=== PATIENT | female | born 1925 | race Caucasian/White ===

== ENCOUNTER 2017-02-25 11:00 | Observation (INO) | payer OTHER ==
[2017-02-25 11:04] VITALS: BMI 21.0
[2017-02-25] MEDS ORDERED: KETOROLAC TROMETHAMINE 60 MG/2 ML VIAL IM ONE (12:27)
[2017-02-25] MEDS ORDERED: KETOROLAC TROMETHAMINE 30 MG/1 ML VIAL ONE (12:41)
--- NOTE | 2017-02-25 12:48 | PDOC ---
History of Present Illness - General Chief Complaint: Pain Stated Complaint: RT LEG PAIN Time Seen by Provider: 02/25/17 11:35 History Source: Patient, Other (daughter) Exam Limitations: No Limitations - History of Present Illness Initial Comments: 02/25/17 13:40 89-year-old female brought in by children for evaluation of continual right hip and right back pain despite taking tramadol and receiving an injection of Toradol by pain management last week. Patient was recommended to have a CT of her spine but does not have an appointment until Sunday and due to the increasing amount of pain family decided bring patient to the ER. Patient denies any paresthesia to the lower extremity, previous injury to the affected area, fall, change in temperature of the extremity or skin discoloration. Occurred: reports: other Severity: reports: moderate Pain Location: reports: lower extremity Method of Injury: Yes: unknown Modifying Factors: improves with: None Associated Symptoms (Fall): trouble walking Past History - Travel Traveled outside of the country in the last 30 days: No Close contact w/someone who was outside of country & ill: No - Past Medical History Allergies/Adverse Reactions: Allergies Allergy/AdvReac Type Severity Reaction Status Date / Time latex [Latex] Allergy Mild Itching Verified 02/25/17 11:01 Home Medications: Ambulatory Orders Aspirin [ASA -] 81 mg PO DAILY 02/08/14 Donepezil HCl [Aricept -] 10 mg PO DAILY 02/08/14 Isosorbide Mononitrate [Imdur] 90 mg PO DAILY 02/08/14 Pantoprazole Sodium [Protonix -] 40 mg PO DAILY 02/08/14 Simvastatin [Zocor -] 10 mg PO DAILY 02/08/14 Alendronate Sodium [Fosamax] 10 mg PO WEEKLY 02/19/16 Amlodipine Besylate 10 mg PO DAILY 02/19/16 Gabapentin 300 mg PO BID 02/19/16 Hydralazine HCl [Apresoline -] 25 mg PO BID 02/19/16 Losartan Potassium 100 mg PO DAILY 02/19/16 Meclizine HCl [Antivert -] 12.5 mg PO DAILY 02/19/16 Memantine HCl [Namenda -] 10 mg PO BID 02/19/16 Metoprolol Succinate [Toprol Xl -] 12.5 mg PO DAILY 02/19/16 Anemia: Yes Cardiac Disorders: Yes (STENT 2008) CHF: No Diabetes: No GI Disorders: Yes (GERD) HTN: Yes Hypercholesterolemia: Yes Suicide Attempt (Hx): No - Surgical History Cardiac Surgery: Yes (Stents placed) Neurologic Surgery: Yes (BENIGN TUMOR SCALP MARCH 2011) - Immunization History Td Vaccination: Yes (INCLUDING FLU SHOT) Immunization Up to Date: Yes - Suicide/Smoking/Psychosocial Hx Anxiety: No Suicidal Ideation: No Smoking Status: No Smoking History: Never smoked Have you smoked in the past 12 months: No Number of Cigarettes Smoked Daily: 0 Information on smoking cessation initiated: No Hx Alcohol Use: No Drug/Substance Use Hx: No Substance Use Type: None Hx Substance Use Treatment: No Patient Lives Alone: No Lives with/in: children Trauma Specific PMHX - Complaint Specific PMHX Arthritis: No Back Injury: No Review of Systems - Review of Systems Able to Perform ROS?: Yes Constitutional: No: Symptoms Reported Respiratory: No: Symptoms reported Cardiac (ROS): No: Symptoms Reported : No: Symptoms Reported Musculoskeletal: Yes: Back Pain, Joint Pain Integumentary: No: Symptoms Reported Neurological: No: Symptoms reported Endocrine: No: Symptoms Reported Hematologic/Lymphatic: No: Symptoms Reported *Physical Exam - Vital Signs Last Vital Signs Temp Pulse Resp BP Pulse Ox 98.2 F 75 18 115/76 100 02/25/17 11:03 02/25/17 11:03 02/25/17 11:03 02/25/17 11:03 02/25/17 11:03 - Physical Exam General Appearance: Yes: Nourished, Appropriately Dressed. No: Apparent Distress Respiratory/Chest: positive: Lungs Clear, Normal Breath Sounds. negative: Respiratory Distress, Accessory Muscle Use Cardiovascular: positive: Regular Rhythm, Regular Rate. negative: Murmur Gastrointestinal/Abdominal: positive: Soft. negative: Tenderness Musculoskeletal: positive: Vertebral Tenderness (l5-S1. tenderness over the right sciatic nerve). negative: CVA Tenderness, Decreased Range of Motion Extremity: positive: Normal Capillary Refill, Normal Inspection, Normal Range of Motion. negative: Tender, Swelling, Calf Tenderness, Erythema Integumentary: positive: Normal Color, Warm, Moist. negative: Rash Neurologic: positive: Motor Strength 5/5 (right straight leg raise. right knee to chest) Heart Score/ECG Review - Age Age: >/= 65 - ECG Impressions Bradycardia: Yes (rate 46 with first-degree AV block. No ischemic changes noted) ED Treatment Course - LABORATORY CBC & Chemistry Diagram: 02/27/17 06:00 02/27/17 06:00 - RADIOLOGY Radiology Studies Ordered: Category Date Time Status HIP & PELVIS-RIGHT [RAD] Stat Radiology 02/25/17 12:27 Ordered SPINE-LUMBAR SACRAL [RAD] Stat Radiology 02/25/17 12:27 Ordered - Medications Given in the ED: ED Medications Discontinued Medications Generic Name Dose Route Start Last Admin Trade Name Kamaljit PRN Reason Stop Dose Admin Ketorolac Tromethamine 30 mg 02/25/17 12:27 02/25/17 12:35 Toradol Injection - IM 02/25/17 12:28 30 mg ONCE ONE Administration Medical Decision Making - Medical Decision Making 02/25/17 13:03 Patient here with worsening right lower back right hip pain over the past 2 weeks despite taking Ultram and receiving the Toradol injection which she states initially did alleviate pain but only to return the next day. Patient is pending CT imaging of the spine and hip but unable to weight due to pain. Patient exam had point tenderness over the right sciatic nerve and L5-S1. Patient with 5 out of 5 strength but concerning for spinal stenosis with sciatic nerve involvement. Will rule out stress fracture. 02/25/17 15:03 Hip and pelvic x-ray negative for acute findings. Lumbar spine shows degenerative changes with slight forward subluxation of L4 on L5 and L5 and S1. Patient still complaining of pain despite receiving Toradol. Patient will be given a dose of Percocet. Due to patient's worsening pain and inability to ambulate here in the ER, I will contact patient's PCP Dr. Burnett and the hospitalist team to discuss admission. 02/25/17 15:35 Patient still complaining of discomfort and unable to sit upright without discomfort. Patient will be admitted to Dr. Neal, hospitalist. Patient ordered for admission labs and urine. *DC/Admit/Observation/Transfer Diagnosis at time of Disposition: Intractable low back pain - Discharge Dispostion Admit: Yes
--- NOTE | 2017-02-25 15:26 | HP ---
CHIEF COMPLAINT: Back pain PCP: Lex HISTORY OF PRESENT ILLNESS: The patient is an 89 year old female with a significant past medical history of hypertension, hyperlipidemia, CAD, s/p pacemaker, reported lumbar spinal stenosis, chronic back pain, chronic constipation, mild early dementia who presents with several weeks of gradually increasing back pain. The pain was initially localized to the midline of the lower back. For the past week it had spread to the right lower back and right gluteal region. It radiates down the posterior right leg. It is worsenend by movement and palpation of the gluteal area. She denies weakness in either leg. She denies any change in her chronic mild right leg paresthsias. She denies and worsening of her chronic constipation. She denies any change in her chronic urge incontinence. No urinary retention. No fever. No rash. No hematuria. No dysuria. No trauma. The pain she is having now is apparently different than her chronic low back pain in that it has lateralized. She saw Dr. Latham (pain management) last week and received a "shot in the right buttock" which relieved the pain for 24 hours. Since that time it has worsened and she is now unable to transfer from bed to chair or to ambulate independently. Family reports MRI was scheduled for later this week. No mid or upper back pain. No neck pain. ER course was notable for: (1) CXR (2) L-spine X-ray (3) Hip and pelvis X-ray (4) Labs and EKG ordered by me (5) Toradol and Percocet given PAST MEDICAL HISTORY: See HPI PAST SURGICAL HISTORY: S/P SB Social History: Smoking: None Alcohol: None Drugs: None Family History: Allergies latex [Latex] Allergy (Mild, Verified 02/25/17 11:01) Itching With Rash HOME MEDICATIONS: Home Medications Medication Instructions Recorded Aspirin [ASA -] 81 mg PO DAILY 02/08/14 Donepezil HCl [Aricept -] 10 mg PO DAILY 02/08/14 Isosorbide Mononitrate [Imdur] 90 mg PO DAILY 02/08/14 Pantoprazole Sodium [Protonix -] 40 mg PO DAILY 02/08/14 Simvastatin [Zocor -] 10 mg PO DAILY 02/08/14 Alendronate Sodium [Fosamax] 10 mg PO WEEKLY 02/19/16 Amlodipine Besylate 10 mg PO DAILY 02/19/16 Cyclobenzaprine HCl [Flexeril -] 10 mg PO TID PRN #21 tablet 02/19/16 Gabapentin 300 mg PO BID 02/19/16 Hydralazine HCl [Apresoline -] 25 mg PO BID 02/19/16 Losartan Potassium 100 mg PO DAILY 02/19/16 Meclizine HCl [Antivert -] 12.5 mg PO DAILY 02/19/16 Memantine HCl [Namenda -] 10 mg PO BID 02/19/16 Metoprolol Succinate [Toprol Xl -] 12.5 mg PO DAILY 02/19/16 REVIEW OF SYSTEMS CONSTITUTIONAL: Absent: fever, chills, diaphoresis, generalized weakness, malaise, loss of appetite, weight change HEENT: Absent: rhinorrhea, nasal congestion, throat pain, throat swelling, difficulty swallowing, mouth swelling, ear pain, eye pain, visual changes CARDIOVASCULAR: Absent: chest pain, syncope, palpitations, irregular heart rate, lightheadedness , peripheral edema RESPIRATORY: Absent: cough, shortness of breath, dyspnea with exertion, orthopnea, wheezing, stridor, hemoptysis GASTROINTESTINAL: Present: chronic constipation Absent: abdominal pain, abdominal distension, nausea, vomiting, diarrhea, melena , hematochezia Chronic constipation (last BM 3 days ago), positive flatus GENITOURINARY: Present: chronic urge incontinence Absent: dysuria, frequency, hesitancy, hematuria, flank pain, genital pain MUSCULOSKELETAL: Present: See HPU Absent: arthralgia, joint swelling, neck pain SKIN: Absent: rash, itching, pallor HEMATOLOGIC/IMMUNOLOGIC: Absent: easy bleeding, easy bruising, lymphadenopathy, frequent infections ENDOCRINE: Absent: unexplained weight gain, unexplained weight loss, heat intolerance, cold intolerance NEUROLOGIC: Absent: headache, focal weakness or paresthesias, dizziness, unsteady gait, seizure, mental status changes, bladder or bowel incontinence PSYCHIATRIC: Absent: anxiety, depression, suicidal or homicidal ideation, hallucinations. PHYSICAL EXAMINATION Vital Signs - 24 hr 02/25/17 11:03 Temperature 98.2 F Pulse Rate 75 Respiratory 18 Rate Blood Pressure 115/76 O2 Sat by Pulse 100 Oximetry (%) GENERAL: Awake, alert, and fully oriented, in no acute distress. HEAD: Normal with no signs of trauma. EYES: Pupils equal, round and reactive to light, extraocular movements intact, sclera anicteric, conjunctiva clear. No lid lag. EARS, NOSE, THROAT: Ears normal, nares patent, oropharynx clear without exudates. Dry mucous membranes NECK: Normal range of motion, supple without lymphadenopathy, JVD, or masses. LUNGS: Breath sounds equal, clear to auscultation bilaterally. No wheezes, and no crackles. No accessory muscle use. HEART: Regular rate and rhythm, normal S1 and S2 without murmur, rub or gallop. ABDOMEN: Soft, nontender, not distended, normoactive bowel sounds, no guarding, no rebound, no masses. No hepatomegaly or splenomegaly. MUSCULOSKELETAL: Normal range of motion at all joints. No bony deformities or tenderness. No CVA tenderness. No midline vertebral tenderness in the cervical, thoracic or lumbar spine. Point tenderness over the right gluteal area that reproduces her symptoms. UPPER EXTREMITIES: 2+ pulses, warm, well-perfused. No cyanosis. No clubbing. No peripheral edema. LOWER EXTREMITIES: 2+ pulses, warm, well-perfused. No calf tenderness. No peripheral edema. NEUROLOGICAL: Cranial nerves II-XII intact. Normal speech. Strength 5/5 in BLUE. Strength 5/5 in BLLE. No defecits to light touch or temperature in the BLLE. Normoreflexic in the BLLE. No saddle anesthesia. Positive straight leg raise on the right at 30% PSYCHIATRIC: Cooperative. Good eye contact. Appropriate mood and affect. SKIN: Warm, dry, normal turgor, no rashes or lesions noted, normal capillary refill. ASSESSMENT/PLAN: The patient is an 89 year old female with a significant past medical history and ED course as above who is being placed on observation for further evaluation and treatment of intractable right low back pain. Labs pending #Pain No evidence of spinal cord compression No evidence of cauda equina syndrome Doubt lumbar spinal stenosis, given how lateralizing this is, though it is possible Suspect acute lumbosacral radiculopathy (sciatica) Begin Motrin 600mg Q8hr ATC Begin Lidoderm patch Continue Neurontin but increase to 300mg TID Percocet 1 tab Q6 hrs prn severe pain PT consult Will avoid cyclobenzaprine given lack of demonstrated efficacy over NSAIDS and side effect profile Can consider systemic corticosteroids if pain does not improve with NSAIDS and PT, though she will be at increased risk of side effects given advanced age and dementia (psychosis), history GERD and on ASA with NSAIDS (gastritis and PUD) Ortho consult Pain management consult (Dr. Luciano) for consideration of glucocorticoid injection MRI lumbar spine #[facility] Chronic HTN, HLP, CAD No acute issues Continue home medications #FEN She seems hypovolemic Will give 500ml NS followed by maintenance fluid Low sodium diet Lytes pending #Chronic constipation Acute exacerbation Colace TID Senna BID Miralax daily Lactulose prn #Prophylaxis Lovenox Protonix while on NSAIDS PT consult as above #Disposition Pending improvement and MRI Dr. Kruger to assume care in the morning Our group is covering him today and tonight Visit type - Emergency Visit Emergency Visit: Yes ED Registration Date: 02/25/17 Care time: The patient presented to the Emergency Department on the above date and was hospitalized for further evaluation of their emergent condition. - New Patient This patient is new to me today: Yes Date on this admission: 02/25/17 - Critical Care Critical Care patient: No
[2017-02-25] MEDS ORDERED: ALENDRONATE SODIUM 10 MG PO SCH (16:00)
[2017-02-25] MEDS ORDERED: LIDOCAINE 5% TOPICAL PATCH TP ONE (16:01)
[2017-02-25] MEDS ORDERED: LACTULOSE 20 GM/30 ML UDC (FOR ORAL USE ONLY) PO PRN (16:03)
[2017-02-25] MEDS ORDERED: SODIUM CHLORIDE 500 ML IV STA (16:05)
[2017-02-25] MEDS: ENOXAPARIN NA (PORCINE) 30 MG/0.3 ML DISP.SYRIN SQ SCH (16:25)
[2017-02-25] MEDS ORDERED: ACETAMINOPHEN 325 MG TABLET (FP) PO PRN (16:39)
[2017-02-25] MEDS ORDERED: oxyCODONE HCL 5 MG TABLET PO PRN (16:39)
[2017-02-25] MEDS ORDERED: LACTULOSE 20 GM/30 ML UDC (FOR ORAL USE ONLY) ONE (16:42)
[2017-02-25] MEDS ORDERED: LIDOCAINE 5% TOPICAL PATCH ONE (16:43)
[2017-02-25] MEDS ORDERED: ENOXAPARIN NA (PORCINE) 40 MG/0.4 ML DISP.SYRIN SQ ONE (16:43)
[2017-02-25 17:28] LABS: BASOPHIL 1.5 % (0-2.0); EOSINOPHIL 7.3 % (0-4.5); MCH 29.7 pg (25.7-33.7); MCHC 34.2 g/dl (32.0-36.0); MEAN PLT VOLUME 8.1 fl (7.5-11.1); PLATELET COUNT 166 K/MM3 (134-434); WHITE BLOOD COUNT 4.2 K/mm3 (4.0-10.0)
[2017-02-25 17:56] LABS: ALBUMIN 3.7 g/dl (3.4-5.0); ALK PHOS 42 U/L (45-117); ANION GAP 8 (8-16); BILIRUBIN,TOTAL 0.6 mg/dL (0.2-1.0); CALCIUM 8.7 mg/dL (8.5-10.1); CO2 30 mmol/L (21-32); GLUCOSE,RANDOM 133 mg/dL (74-106); SGOT/AST 15 U/L (15-37); SGPT/ALT 19 U/L (12-78); TOT PROT 6.7 g/dl (6.4-8.2)
[2017-02-25 18:00] LABS: MAGNESIUM 2.4 mg/dL (1.8-2.4); PHOSPHOROUS 3.5 mg/dL (2.5-4.9)
[2017-02-25] MEDS: IBUPROFEN 600 MG TABLET (FP) PO SCH ×2 (18:10→23:53)
[2017-02-25] MEDS: POLYETHYLENE GLYCOL 3350 119 GM BTL PO SCH (20:58)
[2017-02-25] MEDS: DEXTROSE 5%-0.45% SALINE 1,000 ML IV SCH (20:59)
[2017-02-25] MEDS: GABAPENTIN 300 MG CAPSULE (FP) PO SCH (20:59)
[2017-02-25] MEDS: DOCUSATE SODIUM 100 MG CAPSULE (FP) PO SCH ×2 (20:59→23:11)
[2017-02-25] MEDS: SENNOSIDES 8.6MG TABLET (FP) PO SCH (21:01)
[2017-02-25] MEDS: hydrALAZINE HCL 25 MG TABLET (FP) PO SCH (21:01)
[2017-02-25] MEDS: MEMANTINE HCL 10 MG TABLET (FP) PO SCH (21:01)
[2017-02-25] MEDS ORDERED: GABAPENTIN 300 MG CAPSULE (FP) PO SCH (22:00)
[2017-02-25] MEDS: LIDOCAINE PATCH REMOVAL MC SCH (23:12)
[2017-02-25] MEDS ORDERED: FLU VACCINE QUAD 60 MCG/0.5 ML (MDV 17-18) IM ONE (23:21)
[2017-02-26] MEDS: DOCUSATE SODIUM 100 MG CAPSULE (FP) PO SCH ×3 (05:50→21:03)
[2017-02-26] MEDS: GABAPENTIN 300 MG CAPSULE (FP) PO SCH ×3 (05:50→21:03)
[2017-02-26] MEDS: DEXTROSE 5%-0.45% SALINE 1,000 ML IV SCH ×2 (06:46→21:04)
[2017-02-26 08:51] LABS: MCH 29.6 pg (25.7-33.7); MEAN PLT VOLUME 8.6 fl (7.5-11.1); PLATELET COUNT 144 K/MM3 (134-434); RDW 14.1 % (11.6-15.6); WHITE BLOOD COUNT 3.2 K/mm3 (4.0-10.0)
--- NOTE | 2017-02-26 08:57 | CON.ORTH ---
Consult Reason for Consultation:: LBP, right hip pain - Alcohol/Substance Use Hx Alcohol Use: No - Smoking History Smoking history: Never smoked Have you smoked in the past 12 months: No Aproximately how many cigarettes per day: 0 Home Medications - Allergies Allergies/Adverse Reactions: Allergies Allergy/AdvReac Type Severity Reaction Status Date / Time latex [Latex] Allergy Mild Itching Verified 02/25/17 11:01 - Home Medications Home Medications: Ambulatory Orders Aspirin [ASA -] 81 mg PO DAILY 02/08/14 Donepezil HCl [Aricept -] 10 mg PO DAILY 02/08/14 Isosorbide Mononitrate [Imdur] 90 mg PO DAILY 02/08/14 Pantoprazole Sodium [Protonix -] 40 mg PO DAILY 02/08/14 Simvastatin [Zocor -] 10 mg PO DAILY 02/08/14 Alendronate Sodium [Fosamax] 10 mg PO WEEKLY 02/19/16 Amlodipine Besylate 10 mg PO DAILY 02/19/16 Gabapentin 300 mg PO BID 02/19/16 Hydralazine HCl [Apresoline -] 25 mg PO BID 02/19/16 Losartan Potassium 100 mg PO DAILY 02/19/16 Meclizine HCl [Antivert -] 12.5 mg PO DAILY 02/19/16 Memantine HCl [Namenda -] 10 mg PO BID 02/19/16 Metoprolol Succinate [Toprol Xl -] 12.5 mg PO DAILY 02/19/16 Physical Exam for Ortho Vital Signs: Vital Signs Temperature 97.2 F L 02/26/17 05:58 Pulse Rate 63 02/26/17 05:58 Respiratory Rate 18 02/26/17 05:58 Blood Pressure 145/82 02/26/17 05:58 O2 Sat by Pulse Oximetry (%) 99 02/25/17 15:05 - Lower Extremity Pelvis: Yes: Exam WNL, Right Hip: Yes: Exam WNL, Right (LS - + ttp right sided, pain radiating down R LE, - SLR, strength 4/5 compared b/l, good sensation, 2+ pulses) Imaging - Results X-ray: Report Reviewed, Image Reviewed Assessment/Plan 89 year old female with a significant past medical history of hypertension, hyperlipidemia, CAD, s/p pacemaker, reported lumbar spinal stenosis, chronic back pain, chronic constipation, mild early dementia who presents with several weeks of gradually increasing back pain. The pain was initially localized to the midline of the lower back. For the past week it had spread to the right lower back and right gluteal region. It radiates down the posterior right leg. It is worsenend by movement and palpation of the gluteal area. She denies weakness in either leg. She denies any change in her chronic mild right leg paresthsias. Debis bowel/bladder dysfunction. Has seen Dr. Luciano for pain management a/p- LS multi-level degenetive disc disease, stenosis- right hip no acute pathology PT eval, wbat Dr Luciano f/u OOB pain control dvt ppx d/w Dr. Hussein
[2017-02-26 08:59] LABS: ANION GAP 8 (8-16); CALCIUM 8.7 mg/dL (8.5-10.1); CO2 30 mmol/L (21-32); CREATININE 0.8 mg/dL (0.55-1.02); GLUCOSE,RANDOM 100 mg/dL (74-106)
[2017-02-26] MEDS ORDERED: ISOSORBIDE MONONITRATE 30 MG TAB.SR.24H (FP) PO ONE (09:39)
[2017-02-26] MEDS ORDERED: ISOSORBIDE MONONITRATE 60 MG TAB.SR.24H (FP) PO ONE (09:39)
[2017-02-26] MEDS: DONEPEZIL HCL 10 MG TABLET (FP) PO SCH (09:44)
[2017-02-26] MEDS: ISOSORBIDE MONONITRATE 60 MG, ISOSORBIDE MONONITRATE 30 MG PO SCH (09:44)
[2017-02-26] MEDS: METOPROLOL SUCCINATE 25 MG TAB.SR.24H (FP) PO SCH (09:44)
[2017-02-26] MEDS: hydrALAZINE HCL 25 MG TABLET (FP) PO SCH ×2 (09:45→21:04)
[2017-02-26] MEDS: amLODIPine BESYLATE 10 MG TABLET (FP) PO SCH (09:45)
[2017-02-26] MEDS: SENNOSIDES 8.6MG TABLET (FP) PO SCH ×2 (09:45→21:03)
[2017-02-26] MEDS: PANTOPRAZOLE 40 MG TABLET (FP) PO SCH (09:46)
[2017-02-26] MEDS: ASPIRIN 81 MG CHEWABLE TABLETS PO SCH (09:46)
[2017-02-26] MEDS: LOSARTAN POTASSIUM 50 MG TABLET (FP) PO SCH (09:47)
[2017-02-26] MEDS: IBUPROFEN 600 MG TABLET (FP) PO SCH ×3 (09:47→23:19)
[2017-02-26] MEDS: MEMANTINE HCL 10 MG TABLET (FP) PO SCH ×2 (09:48→21:04)
[2017-02-26] MEDS: POLYETHYLENE GLYCOL 3350 119 GM BTL PO SCH (09:50)
[2017-02-26] MEDS: ENOXAPARIN NA (PORCINE) 30 MG/0.3 ML DISP.SYRIN SQ SCH (09:53)
[2017-02-26] MEDS ORDERED: ISOSORBIDE MONONITRATE 60 MG TAB.SR.24H (FP) PO SCH ×2 (10:00)
[2017-02-26] MEDS ORDERED: ISOSORBIDE MONONITRATE 30 MG TAB.SR.24H (FP) PO SCH (10:00)
--- NOTE | 2017-02-26 13:54 | EKG ---
Test Reason : Blood Pressure : / mmHG Vent. Rate : 059 BPM Atrial Rate : 059 BPM P-R Int : 326 ms QRS Dur : 086 ms QT Int : 444 ms P-R-T Axes : 060 -39 020 degrees QTc Int : 439 ms SINUS BRADYCARDIA WITH MARKED SINUS ARRHYTHMIA WITH 1ST DEGREE A-V BLOCK POSSIBLE BLOCKED APC VS. MOBITZ 1 SECONDARY AV BLOCK LEFT AXIS DEVIATION ABNORMAL ECG WHEN COMPARED WITH ECG OF 25-FEB-2017 17:51, NO SIGNIFICANT CHANGE WAS FOUND Confirmed by VALERIANO WANG, IVORY ([id number]) on 02/26/2017 1:53:37 PM Referred By: BRAULIO CARRILLO Confirmed By:IVORY BAL MD
--- NOTE | 2017-02-26 13:57 | EKG ---
Test Reason : Blood Pressure : / mmHG Vent. Rate : 046 BPM Atrial Rate : 059 BPM P-R Int : 378 ms QRS Dur : 084 ms QT Int : 466 ms P-R-T Axes : 106 -43 060 degrees QTc Int : 407 ms SINUS BRADYCARDIA WITH 2ND DEGREE A-V BLOCK (MOBITZ I) 1ST DEGREE AV BLOCK LEFT AXIS DEVIATION ABNORMAL ECG WHEN COMPARED WITH ECG OF 19-FEB-2016 11:55, NO SIGNIFICANT CHANGE WAS FOUND Confirmed by IVORY BAL MD ([id number]) on 02/26/2017 1:56:30 PM Referred By: Confirmed By:IVORY BAL MD
--- NOTE | 2017-02-26 17:42 | PN ---
Physical Exam: SUBJECTIVE: Patient seen and examined at the bedside. She states her pain is improving. She denies any other discomfort. OBJECTIVE: Vital Signs Period Temp Pulse Resp BP Sys/Barton Pulse Ox Last 24 Hr 97.2 F-98.9 F 57-69 18-18 117-154/58-83 GENERAL: The patient is awake, alert, and fully oriented, in no acute distress. HEAD: Normal with no signs of trauma. EYES: PERRL, extraocular movements intact, sclera anicteric, conjunctiva clear. No ptosis. ENT: Ears normal, nares patent, oropharynx clear without exudates, moist mucous membranes. NECK: Trachea midline, full range of motion, supple. LUNGS: Breath sounds equal, clear to auscultation bilaterally, no wheezes, no crackles, no accessory muscle use. HEART: Regular rate and rhythm ABDOMEN: Soft, nontender, nondistended, normoactive bowel sounds, no guarding, no rebound, no hepatosplenomegaly, no masses. EXTREMITIES: 2+ pulses, warm, well-perfused, no edema. NEUROLOGICAL: Normal speech, gait not observed. PSYCH: Normal mood, normal affect. SKIN: Warm, dry, normal turgor, no rashes or lesions noted Laboratory Results - last 24 hr 02/25/17 02/25/17 02/26/17 17:00 17:00 08:00 WBC 3.2 L RBC 3.74 Hgb 11.1 Hct 32.5 MCV 87.0 MCH 29.6 MCHC 34.0 RDW 14.1 Plt Count 144 MPV 8.6 Sodium 143 Potassium 3.9 Chloride 105 Carbon Dioxide 30 D Anion Gap 8 BUN 19 H Creatinine 1.0 Creat Clearance w eGFR 52.20 Random Glucose 133 H Calcium 8.7 Phosphorus 3.5 Magnesium 2.4 Total Bilirubin 0.6 AST 15 ALT 19 D Alkaline Phosphatase 42 L Total Protein 6.7 Albumin 3.7 02/26/17 08:00 WBC RBC Hgb Hct MCV MCH MCHC RDW Plt Count MPV Sodium 143 Potassium 3.7 Chloride 105 Carbon Dioxide 30 Anion Gap 8 BUN 15 D Creatinine 0.8 Creat Clearance w eGFR Random Glucose 100 D Calcium 8.7 Phosphorus Magnesium Total Bilirubin AST ALT Alkaline Phosphatase Total Protein Albumin Active Medications Generic Name Dose Route Start Last Admin Trade Name Freq PRN Reason Stop Dose Admin Acetaminophen 325 mg 02/25/17 16:39 Tylenol - PO Q6H PRN PAIN Amlodipine Besylate 10 mg 02/26/17 10:00 02/26/17 09:45 Norvasc - PO 10 mg DAILY LUZ Administration Aspirin 81 mg 02/26/17 10:00 02/26/17 09:46 Asa - PO 81 mg DAILY LUZ Administration Atorvastatin Calcium 10 mg 02/26/17 22:00 Lipitor - PO HS LUZ Docusate Sodium 100 mg 02/25/17 22:00 02/26/17 13:52 Colace - PO 100 mg TID LUZ Administration Donepezil HCl 10 mg 02/26/17 10:00 02/26/17 09:44 Aricept - PO 10 mg DAILY LUZ Administration Enoxaparin Sodium 30 mg 02/25/17 16:15 02/26/17 09:53 Lovenox - SQ 30 mg DAILY LUZ Administration Gabapentin 300 mg 02/25/17 22:00 02/26/17 13:51 Neurontin - PO 300 mg TID LUZ Administration Hydralazine HCl 25 mg 02/25/17 22:00 02/26/17 09:45 Apresoline - PO 25 mg BID LUZ Administration Dextrose/Sodium Chloride 1,000 mls @ 100 mls/hr 02/25/17 16:15 02/26/17 06:46 D5-1/2ns - IV 100 mls/hr ASDIR LUZ Administration Ibuprofen 600 mg 02/25/17 16:15 02/26/17 17:32 Motrin - PO 600 mg Q8H LUZ Administration Isosorbide Mononitrate 60 mg/ 90 mg 02/26/17 10:00 02/26/17 09:44 Isosorbide Mononitrate 30 mg PO 90 mg DAILY LUZ Administration Lactulose 20 gm 02/25/17 16:03 Cephulac (Oral Use) PO DAILY PRN CONSTIPATION Losartan Potassium 100 mg 02/26/17 10:00 02/26/17 09:47 Cozaar - PO 100 mg DAILY LUZ Administration Memantine 10 mg 02/25/17 22:00 02/26/17 09:48 Namenda - PO 10 mg BID LUZ Administration Metoprolol Succinate 12.5 mg 02/26/17 10:00 02/26/17 09:44 Toprol Xl - PO 12.5 mg DAILY LUZ Administration Miscellaneous 1 each 02/25/17 22:00 02/25/17 23:12 Lidoderm Patch Removal MC 1 each DAILY@2200 LUZ Administration Oxycodone HCl 5 mg 02/25/17 16:39 Roxicodone - PO Q6H PRN PAIN Pantoprazole Sodium 40 mg 02/26/17 10:00 02/26/17 09:46 Protonix - PO 40 mg DAILY LUZ Administration Polyethylene Glycol 17 gm 02/25/17 16:15 02/26/17 09:50 Miralax (For Daily Use) - PO 17 grams DAILY LUZ Administration Senna 1 tab 02/25/17 22:00 02/26/17 09:45 Senna - PO 1 tab BID LUZ Administration ASSESSMENT/PLAN: Patient is a 89 year old female with a significant past medical history of hypertension, hyperlipidemia, CAD, s/p pacemaker, reported lumbar spinal stenosis, chronic back pain, chronic constipation and early dementia. She was brought in by her family for evaluation of persistent right hip and right back pain no relieved with tramadol. She had also received an injection of Toradol by pain management last week. Patient was recommended to have a CT of her spine but does not have an appointment until Sunday and due to the increasing amount of pain family decided bring patient to the ER. Patient denies any paresthesia to the lower extremity, denies any recent trauma to the right hip or any recent falls. Muscular/Skeletal: Right Hip and right sided back pain A/P: Lumbar spine xray shows degenerative changes, slight subluxative vascular calcifications, Hip & Pelvis xray shos no acute pathology Pain management with Lidoderm patches, Oxycodone 5mg 06, Motrin prn, Neurontin 300mg TID Physical therapy, weight bearing as tolerated Seen by orthopedics MRI of lumbar/spine pending Fall precautions Cardiology: Hypertension/HLD/CAD/Pacemaker A/P: On Toprol xl 12.5mg PO aily, Cozaar 100mg PO daily, Hydralazine BID, ASA 81mg, Norvasc 10mg Continue cardiac medications as ordered Monitor BP Prophylaxis: DVT: Lovenox 30mg daily GI: Protonix 40mg daily F.E.N. Fluids: tolerating PO, d5 1/2 @ 100cc Electrolytes: monitor Nutrition: low sodium diet Disposition: Full code. Observation status. Visit type - Emergency Visit Emergency Visit: Yes ED Registration Date: 02/25/17 Care time: The patient presented to the Emergency Department on the above date and was hospitalized for further evaluation of their emergent condition. - New Patient This patient is new to me today: Yes Date on this admission: 02/26/17 - Critical Care Critical Care patient: No - Discharge Referral Referred to [facility] Med P.C.: No
[2017-02-26] MEDS: LIDOCAINE PATCH REMOVAL MC SCH (21:05)
[2017-02-26] MEDS ORDERED: ATORVASTATIN CA 10 MG TABLET (FP) PO SCH (22:00)
[2017-02-27] MEDS: GABAPENTIN 300 MG CAPSULE (FP) PO SCH (05:23)
[2017-02-27] MEDS: DOCUSATE SODIUM 100 MG CAPSULE (FP) PO SCH ×2 (05:23→14:00)
[2017-02-27] MEDS: DEXTROSE 5%-0.45% SALINE 1,000 ML IV SCH (05:26)
[2017-02-27 08:24] LABS: BASOPHIL 2.2 % (0-2.0); EOSINOPHIL 9.3 % (0-4.5); MCH 29.2 pg (25.7-33.7); MCHC 33.3 g/dl (32.0-36.0); MEAN CELL VOLUME 87.8 fl (80-96); MEAN PLT VOLUME 8.5 fl (7.5-11.1); NEUTROPHILS 51.3 % (42.8-82.8); PLATELET COUNT 141 K/MM3 (134-434); RDW 14.3 % (11.6-15.6); WHITE BLOOD COUNT 3.5 K/mm3 (4.0-10.0)
[2017-02-27] MEDS: IBUPROFEN 600 MG TABLET (FP) PO SCH (08:44)
--- NOTE | 2017-02-27 08:49 | CONSULT ---
Consult Consult Specialty:: Pain Managenent Reason for Consultation:: LBP - History of Present Illness Chief Complaint: LBP History of Present Illness: 89 yr old female with chronic LBP radiating to Rt leg , no numbness and tingling. She has difficulty in ambulation. pain 5-6/10. now getting better. No weakness or no neurological bowel/bladder issue. - History Source History Provided By: Patient Limitations to Obtaining History: No Limitations - Past Medical History WHITE SOURER: Yes: Other (mild dementia) Cardio/Vascular: Yes: Other (cardiac stent 10 yrs ago ) Gastrointestinal: Yes: Constipation Musculoskeletal: Yes: Chronic low back pain - Alcohol/Substance Use Hx Alcohol Use: No - Smoking History Smoking history: Never smoked Have you smoked in the past 12 months: No Aproximately how many cigarettes per day: 0 Home Medications - Allergies Allergies/Adverse Reactions: Allergies Allergy/AdvReac Type Severity Reaction Status Date / Time latex [Latex] Allergy Mild Itching Verified 02/25/17 11:01 - Home Medications Home Medications: Ambulatory Orders Aspirin [ASA -] 81 mg PO DAILY 02/08/14 Donepezil HCl [Aricept -] 10 mg PO DAILY 02/08/14 Isosorbide Mononitrate [Imdur] 90 mg PO DAILY 02/08/14 Pantoprazole Sodium [Protonix -] 40 mg PO DAILY 02/08/14 Simvastatin [Zocor -] 10 mg PO DAILY 02/08/14 Alendronate Sodium [Fosamax] 10 mg PO WEEKLY 02/19/16 Amlodipine Besylate 10 mg PO DAILY 02/19/16 Gabapentin 300 mg PO BID 02/19/16 Hydralazine HCl [Apresoline -] 25 mg PO BID 02/19/16 Losartan Potassium 100 mg PO DAILY 02/19/16 Meclizine HCl [Antivert -] 12.5 mg PO DAILY 02/19/16 Memantine HCl [Namenda -] 10 mg PO BID 02/19/16 Metoprolol Succinate [Toprol Xl -] 12.5 mg PO DAILY 02/19/16 Review of Systems - Review of Systems Constitutional: reports: No Symptoms Eyes: reports: No Symptoms HENT: reports: No Symptoms Neck: reports: No Symptoms Respiratory: reports: No Symptoms Gastrointestinal: reports: Constipation Genitourinary: reports: No Symptoms Musculoskeletal: reports: Back Pain Neurological: reports: No Symptoms, Other (dementia) Psychiatric: reports: No Symptoms Pain Intensity: 6 Physical Exam Vital Signs: Vital Signs Temperature 97.7 F 02/27/17 06:00 Pulse Rate 62 02/27/17 06:00 Respiratory Rate 20 02/27/17 06:00 Blood Pressure 108/67 02/27/17 06:00 O2 Sat by Pulse Oximetry (%) 97 02/26/17 22:00 Constitutional: Yes: Well Nourished Eyes: Yes: WNL HENT: Yes: WNL Neck: Yes: WNL Respiratory: Yes: WNL Gastrointestinal: Yes: WNL Musculoskeletal: Yes: Back Pain, Joint Stiffness, Other (tendernss in palpation in right lumbar and SIJ region) Edema: No Integumentary: Yes: WNL Neurological: Yes: WNL ...Motor Strength: WNL Psychiatric: Yes: WNL Labs: CBC, BMP 02/27/17 06:00 02/27/17 06:00 Current Medications Generic Name Dose Route Start Last Admin Trade Name Freq PRN Reason Stop Dose Admin Acetaminophen 325 mg 02/25/17 16:39 Tylenol - PO Q6H PRN PAIN Amlodipine Besylate 10 mg 02/26/17 10:00 02/26/17 09:45 Norvasc - PO 10 mg DAILY LUZ Administration Aspirin 81 mg 02/26/17 10:00 02/26/17 09:46 Asa - PO 81 mg DAILY LUZ Administration Atorvastatin Calcium 10 mg 02/26/17 22:00 02/26/17 21:04 Lipitor - PO 10 mg HS LUZ Administration Docusate Sodium 100 mg 02/25/17 22:00 02/27/17 05:23 Colace - PO 100 mg TID LUZ Administration Donepezil HCl 10 mg 02/26/17 10:00 02/26/17 09:44 Aricept - PO 10 mg DAILY LUZ Administration Enoxaparin Sodium 30 mg 02/25/17 16:15 02/26/17 09:53 Lovenox - SQ 30 mg DAILY LUZ Administration Gabapentin 300 mg 02/25/17 22:00 02/27/17 05:23 Neurontin - PO 300 mg TID LUZ Administration Hydralazine HCl 25 mg 02/25/17 22:00 02/26/17 21:04 Apresoline - PO 25 mg BID LUZ Administration Dextrose/Sodium Chloride 1,000 mls @ 100 mls/hr 02/25/17 16:15 02/27/17 05:26 D5-1/2ns - IV 100 mls/hr ASDIR LUZ Administration Ibuprofen 600 mg 02/25/17 16:15 02/26/17 23:19 Motrin - PO 600 mg Q8H LUZ Administration Isosorbide Mononitrate 60 mg/ 90 mg 02/26/17 10:00 02/26/17 09:44 Isosorbide Mononitrate 30 mg PO 90 mg DAILY LUZ Administration Lactulose 20 gm 02/25/17 16:03 Cephulac (Oral Use) PO DAILY PRN CONSTIPATION Losartan Potassium 100 mg 02/26/17 10:00 02/26/17 09:47 Cozaar - PO 100 mg DAILY LUZ Administration Memantine 10 mg 02/25/17 22:00 02/26/17 21:04 Namenda - PO 10 mg BID LUZ Administration Metoprolol Succinate 12.5 mg 02/26/17 10:00 02/26/17 09:44 Toprol Xl - PO 12.5 mg DAILY LUZ Administration Miscellaneous 1 each 02/25/17 22:00 02/26/17 21:05 Lidoderm Patch Removal MC 1 each DAILY@2200 LUZ Administration Oxycodone HCl 5 mg 02/25/17 16:39 02/26/17 20:53 Roxicodone - PO 5 mg Q6H PRN Administration PAIN Pantoprazole Sodium 40 mg 02/26/17 10:00 02/26/17 09:46 Protonix - PO 40 mg DAILY LUZ Administration Polyethylene Glycol 17 gm 02/25/17 16:15 02/26/17 09:50 Miralax (For Daily Use) - PO 17 grams DAILY LUZ Administration Senna 1 tab 02/25/17 22:00 02/26/17 21:03 Senna - PO 1 tab BID LUZ Administration Laboratory Tests 02/25/17 02/25/17 02/25/17 17:00 17:00 17:00 WBC 4.2 RBC 3.57 L Hgb 10.6 L Hct 31.0 L MCV 87.0 MCH 29.7 MCHC 34.2 RDW 14.0 Plt Count 166 MPV 8.1 Neutrophils % 48.0 D Lymphocytes % 36.3 D Monocytes % 6.9 Eosinophils % 7.3 H D Basophils % 1.5 Sodium 143 Potassium 3.9 Chloride 105 Carbon Dioxide 30 D Anion Gap 8 BUN 19 H Creatinine 1.0 Creat Clearance w eGFR 52.20 Random Glucose 133 H Calcium 8.7 Phosphorus 3.5 Magnesium 2.4 Total Bilirubin 0.6 AST 15 ALT 19 D Alkaline Phosphatase 42 L Total Protein 6.7 Albumin 3.7 02/26/17 02/26/17 02/27/17 08:00 08:00 06:00 WBC 3.2 L 3.5 L RBC 3.74 3.45 L Hgb 11.1 10.1 L Hct 32.5 30.3 L MCV 87.0 87.8 MCH 29.6 29.2 MCHC 34.0 33.3 RDW 14.1 14.3 Plt Count 144 141 MPV 8.6 8.5 Neutrophils % 51.3 Lymphocytes % 27.3 D Monocytes % 9.9 Eosinophils % 9.3 H Basophils % 2.2 H Sodium 143 Potassium 3.7 Chloride 105 Carbon Dioxide 30 Anion Gap 8 BUN 15 D Creatinine 0.8 Creat Clearance w eGFR Random Glucose 100 D Calcium 8.7 Phosphorus Magnesium Total Bilirubin AST ALT Alkaline Phosphatase Total Protein Albumin 02/27/17 06:00 WBC RBC Hgb Hct MCV MCH MCHC RDW Plt Count MPV Neutrophils % Lymphocytes % Monocytes % Eosinophils % Basophils % Sodium 141 Potassium 3.9 Chloride 108 H Carbon Dioxide Anion Gap BUN Creatinine Creat Clearance w eGFR Random Glucose Calcium Phosphorus Magnesium Total Bilirubin AST ALT Alkaline Phosphatase Total Protein Albumin Imaging - Results X-ray: Report Reviewed MRI: Pending, Report Reviewed, Image Reviewed Problem List - Problems (1) Spinal stenosis, lumbar region, without neurogenic claudication Code(s): M48.06 - SPINAL STENOSIS, LUMBAR REGION Assessment/Plan Discussion in detail and answered her all questions also spoke with her daughter. 1. Continue current care 2. After reviewing of MRI, patient may benefit with Lumbar epidural. 3. Continue Physical therapy. 4. if patient is medically stable and after reviewing the MRI, patient may be discharged and she would have outpatient PT and epidural. Thanks for your kind referral. Dr. Luciano [phone]
[2017-02-27 08:52] LABS: ALBUMIN 3.1 g/dl (3.4-5.0); ALK PHOS 34 U/L (45-117); ANION GAP 5 (8-16); BILIRUBIN,TOTAL 0.5 mg/dL (0.2-1.0); CALCIUM 8.4 mg/dL (8.5-10.1); CO2 28 mmol/L (21-32); CREATININE 0.9 mg/dL (0.55-1.02); GLUCOSE,RANDOM 97 mg/dL (74-106); SGOT/AST 13 U/L (15-37); SGPT/ALT 17 U/L (12-78); TOT PROT 5.8 g/dl (6.4-8.2)
[2017-02-27] MEDS ORDERED: ISOSORBIDE MONONITRATE 30 MG TAB.SR.24H (FP) PO ONE (09:25)
[2017-02-27] MEDS ORDERED: ISOSORBIDE MONONITRATE 60 MG TAB.SR.24H (FP) PO ONE (09:25)
[2017-02-27] MEDS: ASPIRIN 81 MG CHEWABLE TABLETS PO SCH (09:27)
[2017-02-27] MEDS: amLODIPine BESYLATE 10 MG TABLET (FP) PO SCH (09:27)
[2017-02-27] MEDS: hydrALAZINE HCL 25 MG TABLET (FP) PO SCH (09:28)
[2017-02-27] MEDS: PANTOPRAZOLE 40 MG TABLET (FP) PO SCH (09:28)
[2017-02-27] MEDS: DONEPEZIL HCL 10 MG TABLET (FP) PO SCH (09:28)
[2017-02-27] MEDS: MEMANTINE HCL 10 MG TABLET (FP) PO SCH (09:28)
[2017-02-27] MEDS: ISOSORBIDE MONONITRATE 60 MG, ISOSORBIDE MONONITRATE 30 MG PO SCH (09:28)
[2017-02-27] MEDS: SENNOSIDES 8.6MG TABLET (FP) PO SCH (09:28)
[2017-02-27] MEDS: ENOXAPARIN NA (PORCINE) 30 MG/0.3 ML DISP.SYRIN SQ SCH (09:28)
[2017-02-27] MEDS: LOSARTAN POTASSIUM 50 MG TABLET (FP) PO SCH (09:29)
[2017-02-27] MEDS: METOPROLOL SUCCINATE 25 MG TAB.SR.24H (FP) PO SCH (09:30)
[2017-02-27] MEDS: POLYETHYLENE GLYCOL 3350 119 GM BTL PO SCH (12:06)
--- NOTE | 2017-02-27 13:17 | DS ---
Physical Examination Vital Signs: Vital Signs Temperature 36.7 C 02/27/17 08:00 Pulse Rate 64 02/27/17 08:00 Respiratory Rate 20 02/27/17 08:00 Blood Pressure 139/77 02/27/17 08:00 O2 Sat by Pulse Oximetry (%) 97 02/27/17 08:00 Constitutional: Yes: Well Nourished, No Distress, Calm Cardiovascular: Yes: Regular Rate and Rhythm. No: Gallop, Murmur, Rub Respiratory: Yes: Regular, CTA Bilaterally. No: Rales, Rhonchi, Wheezes Gastrointestinal: Yes: Normal Bowel Sounds, Soft. No: Distention, Tenderness Extremities: Yes: WNL Edema: No Labs: CBC, BMP 02/27/17 06:00 02/27/17 06:00 Discharge Summary Reason For Visit: INTRACTABLE LOW BACK PAIN Current Active Problems Intractable low back pain (Acute) Spinal stenosis, lumbar region, without neurogenic claudication (Acute) Hospital Course: Ms Pride is an 89 year old female who came in with back pain. She was admitted to the hospital under observation. She was seen by pain management and orthopedic surgery. No need for surgical intervention. MRI obtained and reviewed by pain management which recommended outpatient follow up. Patient not having emergent symptoms, but may benefit from outpatient neurosurgical intervention if felt necessary. Follow up with PCP concerning this. Safe for discharge home. Condition: Stable - Instructions Diet, Activity, Other Instructions: resume previous diet and activity Referrals: Morris Burnett MD [Primary Care Provider] - Mihai Luciano MD [Staff Physician] - Disposition: [facility]/HOME HEALTH CARE - Home Medications Comprehensive Discharge Medication List: Ambulatory Orders Aspirin [ASA -] 81 mg PO DAILY 02/08/14 Donepezil HCl [Aricept -] 10 mg PO DAILY 02/08/14 Isosorbide Mononitrate [Imdur] 90 mg PO DAILY 02/08/14 Pantoprazole Sodium [Protonix -] 40 mg PO DAILY 02/08/14 Simvastatin [Zocor -] 10 mg PO DAILY 02/08/14 Alendronate Sodium [Fosamax] 10 mg PO WEEKLY 02/19/16 Amlodipine Besylate 10 mg PO DAILY 02/19/16 Hydralazine HCl [Apresoline -] 25 mg PO BID 02/19/16 Losartan Potassium 100 mg PO DAILY 02/19/16 Meclizine HCl [Antivert -] 12.5 mg PO DAILY 02/19/16 Memantine HCl [Namenda -] 10 mg PO BID 02/19/16 Metoprolol Succinate [Toprol XL -] 12.5 mg PO DAILY 02/19/16 Gabapentin [Neurontin -] 300 mg PO TID #30 cap 02/27/17 Lidocaine Patch Removal [Lidoderm Patch Removal] 1 each MC DAILY@2200 #30 each 02/27/17 Oxycodone HCl [Roxicodone -] 5 mg PO Q6H PRN #30 tablet MDD 30mg 02/27/17
[2017-02-27 13:55] VITALS: BP 128/78; PULSE 68; TEMP 98.8
== END 2017-02-27 14:30 | disposition home health service (06) ==
LOC: JERFT 11:00 → JER 11:00 → JERBED 15:45 → J6S 19:42
PROVIDERS: ADMIT Internal Medicine; ATTEND Internal Medicine
PROC: 3E0337Z Introduction of Electrolytic and Water Balance Substance into Peripheral Vein, Percutaneous Approach (ICD-10-PCS; principal; 2017-02-27)
PROC: 3E013GC Introduction of Other Therapeutic Substance into Subcutaneous Tissue, Percutaneous Approach (ICD-10-PCS; 2017-02-27)
PROC: 3E0233Z Introduction of Anti-inflammatory into Muscle, Percutaneous Approach (ICD-10-PCS; 2017-02-27)
DX: M54.5 Low back pain (principal); M48.06 Spinal stenosis, lumbar region; I25.10 Atherosclerotic heart disease of native coronary artery without angina pectoris; I10 Essential (primary) hypertension; E78.5 Hyperlipidemia, unspecified; F03.90 Unspecified dementia, unspecified severity, without behavioral disturbance, psychotic disturbance, mood disturbance, and anxiety; K59.04 Chronic idiopathic constipation; G89.29 Other chronic pain; Z95.0 Presence of cardiac pacemaker; Z86.718 Personal history of other venous thrombosis and embolism; Z79.01 Long term (current) use of anticoagulants
CPT/HCPCS: 36415; 71010-TC; 72100-TC; 72148-TC; 73523-TC; 80048; 80053; 83735; 84100; 85025; 85027; 90688; 93005; 93010; 97116-GP; 97161-GP; 99282-25; G0378